=== PATIENT | male | born 1945 | race Caucasian/White ===

== ENCOUNTER 2018-11-09 10:11 | Day surgery (SDC) | payer MEDICARE ==
[2018-11-04 09:38] LABS: BASOPHILS # (AUTO) 0.1 X10'3 (0-0.2); BASOPHILS % (AUTO) 1.4 % (0-1); EOSINOPHILS # (AUTO) 0.5 X10'3 (0-0.9); EOSINOPHILS % (AUTO) 10.3 % (0-6); HEMATOCRIT 30.5 % (42.0-52.0); HEMOGLOBIN 10.2 g/dl (14.0-17.9); LYMPHOCYTES # (AUTO) 0.6 X10'3 (1.1-4.8); LYMPHOCYTES % (AUTO) 11.7 % (21-51); MEAN CORPUSCULAR HEMOGLOBIN 27.3 PG (27.0-31.0); MEAN CORPUSCULAR HGB CONC 33.5 g/dL (33.0-36.5); MEAN CORPUSCULAR VOLUME 81.6 FL (78-98); MEAN PLATELET VOLUME 7.6 FL (7.4-10.4); MONOCYTES # (AUTO) 0.5 X10'3 (0-0.9); NEUTROPHILS # (AUTO) 3.5 X10'3 (1.8-7.7); NEUTROPHILS % (AUTO) 67.6 % (42-75); PLATELET COUNT 194 X10'3 (140-440); RED BLOOD COUNT 3.74 X10'6 (4.70-6.10); RED CELL DISTRIBUTION WIDTH 15.3 % (11.5-14.5); WHITE BLOOD COUNT 5.1 X10'3 (4.5-11.0)
[2018-11-04 09:56] LABS: ALANINE AMINOTRANSFERASE 22 U/L (12-78); ALBUMIN 3.1 G/DL (3.4-5.0); ALBUMIN/GLOBULIN RATIO 0.8 (1.1-1.5); ALKALINE PHOSPHATASE 91 IU/L (46-116); ANION GAP 8 (8-16); ASPARTATE AMINO TRANSFERASE 11 U/L (10-37); BILIRUBIN,TOTAL 0.3 MG/DL (0.1-1.0); BLOOD UREA NITROGEN 44 MG/DL (7-18); BUN/CREATININE RATIO 25.1 (5.4-32.0); CALCIUM 8.1 MG/DL (8.5-10.1); CHLORIDE 102 MMOL/L (99-107); CREATININE 1.75 MG/DL (0.60-1.10); GLUCOSE 129 MG/DL (70-104); POTASSIUM 3.4 MMOL/L (3.5-5.1); SODIUM 138 MMOL/L (135-145); TOTAL CARBON DIOXIDE 28.2 MMOL/L (24-32); eGFR 38 ML/MIN
[2018-11-04 09:59] LABS: PARTIAL THROMBOPLASTIN TIME 29 SECONDS (22-32)
[2018-11-09] VITALS (12 sets, daily range): BP systolic 101–169; BP diastolic 64–91
[~2018-11-09] VITALS: Ht 167.6 cm; Wt 112.9 kg
[2018-11-09] MEDS ORDERED: nitroGLYCERIN 0.4mg SUBLingual tab SL PRN ×2 (10:30→14:40)
[2018-11-09] MEDS ORDERED: dextrose 50%-water 50ml dispensing syringe IV PRN ×2 (10:30)
[2018-11-09] MEDS ORDERED: dextrose ORAL solution 15 GM/59 ML bottle PO PRN ×2 (10:30)
[2018-11-09] MEDS ORDERED: MESSAGE TO PHARMACY PO ONE (10:30)
[2018-11-09] MEDS ORDERED: normal saline 1,000 ML IV SCH (10:30)
[2018-11-09] MEDS ORDERED: diphenhydrAMINE 25mg capsule PO PRN (10:30)
[2018-11-09] MEDS ORDERED: insulin Lispro (HumaLOG) vial - multi-dose SQ SCH (10:30)
[2018-11-09] MEDS ORDERED: glucagon, human recombinant 1mg kit SUBCUT PRN (10:30)
[2018-11-09] MEDS ORDERED: LORazepam 0.5 MG tablet PO PRN (10:30)
[2018-11-09] MEDS ORDERED: AMLO10TA PO (11:20)
[2018-11-09] MEDS ORDERED: NITR0.4T48 SL (11:20)
[2018-11-09] MEDS ORDERED: LANTUS SQ (11:20)
[2018-11-09] MEDS ORDERED: INSULIN NPH SUBCUT (11:20)
[2018-11-09] MEDS ORDERED: TRICOR PO (11:20)
[2018-11-09] MEDS ORDERED: AMIO200T54 PO (11:20)
[2018-11-09] MEDS ORDERED: LISI-600 PO (11:20)
[2018-11-09] MEDS ORDERED: TERA5CAP4 PO (11:20)
[2018-11-09] MEDS ORDERED: HYDR100T27 PO (11:20)
[2018-11-09] MEDS ORDERED: CLON-529 PO (11:20)
[2018-11-09] MEDS ORDERED: ASPI-611 PO (11:20)
[2018-11-09] MEDS ORDERED: PRAV20TA4 PO (11:20)
[2018-11-09] MEDS ORDERED: midazolam 2 mg/2 ml injection ONE (12:51)
[2018-11-09] MEDS ORDERED: iohexol 350 MG/ML 50ML vial IV ONE ×2 (12:51→13:50)
[2018-11-09] MEDS ORDERED: LIDOcaine 1% (10mg/ml)w/preservative injection 20ml MDV ONE (12:51)
[2018-11-09] MEDS ORDERED: fentaNYL/PF 50MCG/1 ML 2ML syringe ONE (12:51)
[2018-11-09] MEDS ORDERED: iohexol 350MG/ML 100ml bottle IV ONE (12:51)
[2018-11-09] MEDS ORDERED: nitroGLYCERIN-Tridil 50MG/D5W 250 ML IV ONE (14:00)
[2018-11-09] MEDS ORDERED: normal saline 1000ml 1,000 ML IV SCH (14:40)
[2018-11-09] MEDS ORDERED: HYDROcodone/acetaminophen 5mg/325mg tablet PO PRN (14:40)
[2018-11-09] MEDS ORDERED: OXAZEpam 15mg capsule PO PRN (14:40)
[2018-11-09] MEDS ORDERED: HYDROcodone/acetaminophen 10/325mg tab PO PRN (14:40)
[2018-11-09] MEDS ORDERED: proCHLORperazine 10 MG/2 ml inj IV PRN (14:40)
[2018-11-09] MEDS ORDERED: ondansetron/PF 4mg/2ml inj IV PRN (14:40)
[2018-11-09] MEDS ORDERED: acetaminophen 325mg tablet PO PRN ×2 (14:40→17:15)
[2018-11-09] MEDS ORDERED: insulin glargine (Lantus) pen - multi-dose SQ SCH (21:00)
== END 2018-11-09 20:05 | disposition home or self-care (01) ==
LOC: SSTAY O 10:11
PROVIDERS: ATTEND Internal Medicine Cardiovascular Disease
DX: T82.898A Other specified complication of vascular prosthetic devices, implants and grafts, initial encounter (principal); I25.10 Atherosclerotic heart disease of native coronary artery without angina pectoris; I25.82 Chronic total occlusion of coronary artery; I10 Essential (primary) hypertension; E78.5 Hyperlipidemia, unspecified; G47.33 Obstructive sleep apnea (adult) (pediatric); I42.9 Cardiomyopathy, unspecified; E11.51 Type 2 diabetes mellitus with diabetic peripheral angiopathy without gangrene; Z87.891 Personal history of nicotine dependence; Z95.1 Presence of aortocoronary bypass graft; Z98.890 Other specified postprocedural states; Y83.8 Other surgical procedures as the cause of abnormal reaction of the patient, or of later complication, without mention of misadventure at the time of the procedure
CPT/HCPCS: 36415; 71046; 80053; 82948; 85025; 85610; 85730; 93005; 93459; 99152; 99153; C1769; J1644; J1815; J2001; J2250; J3010; J7030; Q0163; Q9967; A4620; A6258; C1760; J3490

== ENCOUNTER 2019-01-28 06:41 | Observation (INO) | payer MEDICARE ==
[~2019-01-28] VITALS: Ht 180.3 cm; Wt 107.7 kg
[~2019-01-28 06:41] MED LIST: AMIO200T54 PO; AMLO10TA PO; ASPI-611 PO; CLON-529 PO; HYDR100T27 PO; INSULIN NPH SUBCUT; LANTUS SQ; LISI-600 PO; NITR0.4T48 SL; PRAV20TA4 PO; TERA5CAP4 PO; TRICOR PO
[2019-01-28 07:08] LABS: BASOPHILS % (AUTO) 0.7 % (0-1); EOSINOPHILS # (AUTO) 0.6 X10'3 (0-0.9); EOSINOPHILS % (AUTO) 10.7 % (0-6); HEMATOCRIT 30.5 % (42.0-52.0); HEMOGLOBIN 10.4 g/dl (14.0-17.9); LYMPHOCYTES # (AUTO) 0.7 X10'3 (1.1-4.8); LYMPHOCYTES % (AUTO) 13.2 % (21-51); MEAN CORPUSCULAR HEMOGLOBIN 28.2 PG (27.0-31.0); MEAN CORPUSCULAR HGB CONC 34.1 g/dL (33.0-36.5); MEAN CORPUSCULAR VOLUME 82.7 FL (78-98); MEAN PLATELET VOLUME 7.6 FL (7.4-10.4); MONOCYTES # (AUTO) 0.4 X10'3 (0-0.9); MONOCYTES % (AUTO) 7.7 % (2-12); NEUTROPHILS # (AUTO) 3.5 X10'3 (1.8-7.7); NEUTROPHILS % (AUTO) 67.7 % (42-75); PLATELET COUNT 169 X10'3 (140-440); RED BLOOD COUNT 3.69 X10'6 (4.70-6.10); RED CELL DISTRIBUTION WIDTH 15.6 % (11.5-14.5); WHITE BLOOD COUNT 5.2 X10'3 (4.5-11.0)
[2019-01-28 07:13] LABS: PARTIAL THROMBOPLASTIN TIME 28 SECONDS (22-32)
[2019-01-28 07:22] LABS: ALANINE AMINOTRANSFERASE 17 U/L (12-78); ALBUMIN 2.8 G/DL (3.4-5.0); ALBUMIN/GLOBULIN RATIO 0.7 (1.1-1.5); ALKALINE PHOSPHATASE 82 IU/L (46-116); ANION GAP 10 (8-16); ASPARTATE AMINO TRANSFERASE 11 U/L (10-37); BILIRUBIN,TOTAL 0.2 MG/DL (0.1-1.0); BLOOD UREA NITROGEN 37 MG/DL (7-18); BUN/CREATININE RATIO 20.4 (5.4-32.0); CALCIUM 8.2 MG/DL (8.5-10.1); CHLORIDE 101 MMOL/L (99-107); CREATININE 1.81 MG/DL (0.60-1.10); GLUCOSE 349 MG/DL (70-104); POTASSIUM 3.6 MMOL/L (3.5-5.1); SODIUM 137 MMOL/L (135-145); TOTAL CARBON DIOXIDE 25.9 MMOL/L (24-32); TOTAL PROTEIN 6.9 G/DL (6.4-8.2); eGFR 37 ML/MIN
--- NOTE | 2019-01-28 07:34 | NUR ---
notified of blood glucose of 332.
[2019-01-28] MEDS ORDERED: nitroGLYCERIN 0.4mg/hour patch TD ONE (07:50)
[2019-01-28] MEDS ORDERED: dextrose ORAL solution 15 GM/59 ML bottle PO PRN ×2 (08:45)
[2019-01-28] MEDS ORDERED: magnesium Cl slow-release 64mg tablet PO PRN (08:45)
[2019-01-28] MEDS ORDERED: magnesium 4gm in 100ml NS 100 ML IV PRN (08:45)
[2019-01-28] MEDS ORDERED: magnesium 2GM in 50ml NS 50 ML IV PRN (08:45)
[2019-01-28] MEDS ORDERED: HYDROcodone/acetaminophen 10/325mg tab PO PRN (08:45)
[2019-01-28] MEDS ORDERED: dextrose 50%-water 50ml dispensing syringe IV PRN ×2 (08:45)
[2019-01-28] MEDS ORDERED: potassium CL 10mEq/100ml bag 100 ML IV PRN ×2 (08:45)
[2019-01-28] MEDS ORDERED: potassium Cl 20 mEq SR tablet PO PRN ×2 (08:45)
[2019-01-28] MEDS ORDERED: glucagon, human recombinant 1mg kit SUBCUT PRN (08:45)
[2019-01-28] MEDS ORDERED: mag hydrox/Alum hydrox/simeth 30ml oral suspension PO PRN (08:45)
[2019-01-28] MEDS ORDERED: magnesium hydroxide 30ml (MOM) UD suspension PO PRN (08:45)
[2019-01-28] MEDS ORDERED: acetaminophen 325mg tablet PO PRN ×2 (08:45)
[2019-01-28] MEDS ORDERED: ondansetron/PF 4mg/2ml inj IV PRN (08:45)
[2019-01-28] MEDS ORDERED: MESSAGE TO PHARMACY PO ONE (08:45)
[2019-01-28] MEDS ORDERED: morphine 2 MG/ML inj. syringe IV PRN ×2 (08:45)
[2019-01-28] MEDS: K and/or MAG REPLACEMENT MC SCH (08:45)
[2019-01-28] MEDS ORDERED: HYDROcodone/acetaminophen 5mg/325mg tablet PO PRN (08:45)
[2019-01-28] MEDS: normal saline 1000ml 1,000 ML IV SCH ×2 (09:47→23:33)
[2019-01-28 09:49] LABS: CLARITY,URINE CLEAR (Clear); COLOR,URINE YELLOW (Yellow); GLUCOSE, URINE >=1000 mg/dl (Neg); KETONES,URINE NEGATIVE (Neg); LEUKOCYTE ESTERASE ,URINE NEGATIVE (Neg); NITRITES, URINE NEGATIVE (Neg); OCCULT BLOOD,URINE NEGATIVE (Neg); PROTEIN,URINE 100 mg/dl (Neg); UROBILINOGEN,URINE 0.2 E.U/dL (0.2-1.0)
--- NOTE | 2019-01-28 10:00 | NUR ---
Pt arrived to unit from ED. Pt oriented to room and call light. Pt alert and oriented. Vitals WNL besides BP of 188/87
[2019-01-28 10:09] LABS: UA COLLECTION TYPE URINAL
[2019-01-28 10:10] LABS: WBC,URINE 0-4 /HPF (0-4)
[2019-01-28 10:11] LABS: BACTERIA,URINE NONE SEEN /HPF (Neg); RBC,URINE 0-2 /HPF (0-2); SQUAMOUS EPITHELIAL CELL,UR FEW /LPF (FEW)
--- NOTE | 2019-01-28 10:16 | NUR ---
PAGER ID: [phone] MESSAGE: RE: Genaro Linuilar. Room: [facility]. Pt BP 188/87. Pt has scheduled hydralazine 100mg q 8hrs but first dose isn't until 1600. Can I order one time dose for now? -Evan U #[id number] Dr. Pineda paged concerning Pt's BP
[2019-01-28 10:17] LABS: HEMOGLOBIN A1C 9.8 % (4.5-6.2)
[2019-01-28] MEDS ORDERED: hydrALAZINE 25 MG tablet PO ONE (10:45)
[2019-01-28] MEDS: insulin Lispro (HumaLOG) vial - multi-dose SQ SCH ×3 (10:59→19:24)
[2019-01-28 11:00] VITALS: BP 178/87
[2019-01-28 15:00] VITALS: BP 169/71
[2019-01-28] MEDS: hydrALAZINE 25 MG tablet PO SCH ×2 (16:02→23:33)
[2019-01-28 18:00] VITALS: BP 169/72
--- NOTE | 2019-01-28 18:00 | NUR ---
Problems reprioritized. Patient report given, questions answered & plan of care reviewed with Elizabeth RAMIRES.
[2019-01-28] MEDS: heparin, porcine 5000 units/ml vial SQ SCH (19:13)
[2019-01-28] MEDS: cloNIDine 0.1 mg tablet PO SCH (19:18)
[2019-01-28] MEDS ORDERED: terazosin 5mg capsule PO SCH (21:00)
[2019-01-28] MEDS ORDERED: temazepam 15mg capsule PO PRN (21:00)
[2019-01-28] MEDS ORDERED: insulin glargine (Lantus) pen - multi-dose SQ SCH (21:00)
[2019-01-28 22:00] VITALS: BP 143/69
[2019-01-28] MEDS: metoprolol succinate 25mg (24-HOUR) SR. Tablet PO SCH (23:33)
[2019-01-29 03:00] VITALS: BP 169/76
[2019-01-29] MEDS: cloNIDine 0.1 mg tablet PO SCH (03:49)
--- NOTE | 2019-01-29 03:51 | NUR ---
Blood pressure elevated. MD ordered to give clonidine, scheduled at 0800, to be given early.
[2019-01-29] MEDS: normal saline 1000ml 1,000 ML IV SCH (04:44)
[2019-01-29 06:00] VITALS: BP 161/78
--- NOTE | 2019-01-29 06:13 | NUR ---
Problems reprioritized. Patient report given, questions answered & plan of care reviewed with KEYLA Rich.
--- NOTE | 2019-01-29 06:29 | NUR ---
Patient in room PCU 3012C. I have received report from Elizabeth RAMIRES and had the opportunity to ask questions and assume patient care.
[2019-01-29 06:36] LABS: BASOPHILS # (AUTO) 0.1 X10'3 (0-0.2); EOSINOPHILS # (AUTO) 0.5 X10'3 (0-0.9); EOSINOPHILS % (AUTO) 8.7 % (0-6); HEMATOCRIT 27.5 % (42.0-52.0); HEMOGLOBIN 9.3 g/dl (14.0-17.9); LYMPHOCYTES # (AUTO) 0.6 X10'3 (1.1-4.8); LYMPHOCYTES % (AUTO) 9.7 % (21-51); MEAN CORPUSCULAR HEMOGLOBIN 28.2 PG (27.0-31.0); MEAN PLATELET VOLUME 7.8 FL (7.4-10.4); MONOCYTES # (AUTO) 0.4 X10'3 (0-0.9); MONOCYTES % (AUTO) 7.4 % (2-12); NEUTROPHILS # (AUTO) 4.4 X10'3 (1.8-7.7); NEUTROPHILS % (AUTO) 73.2 % (42-75); PLATELET COUNT 169 X10'3 (140-440); RED BLOOD COUNT 3.31 X10'6 (4.70-6.10); RED CELL DISTRIBUTION WIDTH 15.7 % (11.5-14.5)
[2019-01-29 06:52] LABS: ALANINE AMINOTRANSFERASE 15 U/L (12-78); ALBUMIN 2.5 G/DL (3.4-5.0); ALBUMIN/GLOBULIN RATIO 0.7 (1.1-1.5); ALKALINE PHOSPHATASE 70 IU/L (46-116); ANION GAP 8 (8-16); ASPARTATE AMINO TRANSFERASE 9 U/L (10-37); BILIRUBIN,TOTAL 0.2 MG/DL (0.1-1.0); BLOOD UREA NITROGEN 34 MG/DL (7-18); BUN/CREATININE RATIO 22.4 (5.4-32.0); CALCIUM 7.5 MG/DL (8.5-10.1); CHLORIDE 108 MMOL/L (99-107); CHOL/HDL RATIO 2.5 (0.00-4.99); CHOLESTEROL 130 MG/DL (0-200); CREATININE 1.52 MG/DL (0.60-1.10); GLUCOSE 147 MG/DL (70-104); HDL CHOLESTEROL 53 MG/DL (35-60); LDL CHOLESTEROL 63 MG/DL (50-100); MAGNESIUM 1.7 MG/DL (1.5-2.4); PHOSPHORUS 3.9 MG/DL (2.3-4.5); POTASSIUM 3.2 MMOL/L (3.5-5.1); SODIUM 142 MMOL/L (135-145); TOTAL PROTEIN 5.9 G/DL (6.4-8.2); TRIGLYCERIDES 128 MG/DL (20-135); eGFR 45 ML/MIN
[2019-01-29] MEDS: hydrALAZINE 25 MG tablet PO SCH (07:46)
[2019-01-29] MEDS: metoprolol succinate 25mg (24-HOUR) SR. Tablet PO SCH ×2 (07:48→08:00)
[2019-01-29] MEDS: heparin, porcine 5000 units/ml vial SQ SCH (07:53)
[2019-01-29] MEDS ORDERED: lisinopril 20mg tablet PO SCH (08:00)
[2019-01-29] MEDS ORDERED: aspirin 81mg tablet.DR PO SCH (08:00)
[2019-01-29] MEDS ORDERED: atorvastatin 10mg tablet PO SCH (08:00)
[2019-01-29] MEDS ORDERED: fenofibrate 145mg tablet PO SCH (08:00)
[2019-01-29] MEDS ORDERED: amLODIPine 5mg tablet PO SCH (08:00)
[2019-01-29] MEDS ORDERED: isosorbide mononitrate 30mg tab.SR.24H PO SCH (08:00)
[2019-01-29] MEDS: K and/or MAG REPLACEMENT MC SCH (08:00)
[2019-01-29] MEDS ORDERED: amiodarone 200mg tablet PO SCH (08:00)
[2019-01-29] MEDS ORDERED: atorvastatin 20mg tablet PO SCH (08:00)
--- NOTE | 2019-01-29 08:00 | NUR ---
I agree with Physical Assessment documentation of Carley Foster RN.
[2019-01-29] MEDS: insulin Lispro (HumaLOG) vial - multi-dose SQ SCH ×2 (09:07→13:09)
[2019-01-29] MEDS ORDERED: pneumococcal 23-VAL P-sac vacc 25 mcg/0.5ml vial IMVAC ONE (10:00)
[2019-01-29] MEDS ORDERED: FLU VACC QS2019-20 36MOS UP/PF 60 MCG/0.5 ML SYRINGE IMVAC ONE (10:00)
[2019-01-29 11:00] VITALS: BP 149/64
[2019-01-29] MEDS ORDERED: ISOS30TA6 PO (11:34)
[2019-01-29] MEDS ORDERED: METO-395 PO (11:34)
[2019-01-29] MEDS ORDERED: ATOR20TA66 PO (11:34)
--- NOTE | 2019-01-29 11:59 | NUR ---
Paged Dr Pineda regarding discharge medications PAGER ID: [phone] MESSAGE: Layla sanofrd [phone]. RE Clem Espinoza [id number]. Please call regarding pt/s D/C medications. Receiving pharmacy has a question regarding new orders. Thank you
--- NOTE | 2019-01-29 12:44 | NUR ---
Pt has new medication orders for Atorvastatin 80 mg PO daily, in 20 mg tabs. [facility] in [place] let us know that patient's insurance will only cover one tab. Paged Dr Pineda, and he said it was okay to have the pharmacy give the patient one 80 mg tab daily instead of four 20 mg tabs. Order verified with MD and to pharmacy.
--- NOTE | 2019-01-29 13:23 | NUR ---
Spoke with the patient at his bedside and patient states his Diabetic MD is Dr. Galindo. He states his next appointment with her is on 02/15/19 at 0900. Patient encouraged to follow up as directed. Primary RN has been informed.
--- NOTE | 2019-01-29 13:32 | NUR ---
Per MD order patient stable for discharge. Discharge packet reviewed with patient, prescriptions faxed to pharmacy of choice. Tele monitor and IV removed with cannula intact. Patient stable for discharge home with friend/neighbor, taken to private vehicle via wheelchair. All belongings sent with patient.
--- NOTE | 2019-01-29 14:52 | NUR ---
DM Consult: A1C 9.8. Pt seen by RD for written/verbal DM ed w/ RD contact information and CDE course information provided. Pt verbally explained proper carb portions and even percentage of sugar on nutrition facts label that he watches for. Pt admits to decreased dietary compliance following passing recently. Pt takes long acting TID; splits dose at B/L/D since doesn't like taking HS as prescribed and takes short acting prior to meals without dose adjusting based on diet. RD encouraged to attend CDE course and d/w PCP regarding meal replacement dosages in addition to increasing dietary compliance. Addendum: 01/29/19 at [address] Amended: Links added.
--- NOTE | 2019-01-29 15:00 | NUR ---
[employer] documentation: I have reviewed and agree with all interventions, assessments performed and documented by Carley RAMIRES.
[2019-01-30] MEDS ORDERED: FLU VACC QS2019-20 36MOS UP/PF 60 MCG/0.5 ML SYRINGE IMVAC ONE (10:00)
== END 2019-01-29 13:27 | disposition home or self-care (01) ==
LOC: ER 06:41 → ED HOLD 08:54 → PCU 3S 10:10
PROVIDERS: ADMIT Family Medicine; ATTEND Family Medicine
DX: I25.110 Atherosclerotic heart disease of native coronary artery with unstable angina pectoris (principal); I13.0 Hypertensive heart and chronic kidney disease with heart failure and stage 1 through stage 4 chronic kidney disease, or unspecified chronic kidney disease; E11.22 Type 2 diabetes mellitus with diabetic chronic kidney disease; I50.9 Heart failure, unspecified; N18.9 Chronic kidney disease, unspecified; I48.91 Unspecified atrial fibrillation; E11.65 Type 2 diabetes mellitus with hyperglycemia; E66.9 Obesity, unspecified; E78.5 Hyperlipidemia, unspecified; I89.0 Lymphedema, not elsewhere classified; J43.9 Emphysema, unspecified; Z66 Do not resuscitate; Z23 Encounter for immunization; Z95.1 Presence of aortocoronary bypass graft; Z90.49 Acquired absence of other specified parts of digestive tract; Z79.82 Long term (current) use of aspirin; Z79.4 Long term (current) use of insulin; Z79.899 Other long term (current) drug therapy; Z68.33 Body mass index [BMI] 33.0-33.9, adult
CPT/HCPCS: 36415; 71045; 80053; 80061; 81001; 82948; 83036; 83735; 84100; 84439; 84443; 84484; 85025; 85610; 85730; 87081; 93005; 93306; 96360; 96361; 96372; 99284; G0008; G0009; G0378; J1644; J1815; J7030; Q2037

== ENCOUNTER 2019-06-05 11:43 | Inpatient (IN) | payer MEDICARE ==
[~2019-06-05] VITALS: Ht 172.7 cm; Wt 114.4 kg
[~2019-06-05 11:43] MED LIST changes: -AMIO200T54 PO; +AMIO200T62 PO; +ATOR20TA66 PO; +ISOS30TA6 PO; +METO-395 PO; -PRAV20TA4 PO
[2019-06-05 12:11] LABS: BASOPHILS # (AUTO) 0.1 X10'3 (0-0.2); BASOPHILS % (AUTO) 1.3 % (0-1); EOSINOPHILS # (AUTO) 0.4 X10'3 (0-0.9); EOSINOPHILS % (AUTO) 7.1 % (0-6); HEMATOCRIT 31.2 % (42.0-52.0); HEMOGLOBIN 10.2 g/dl (14.0-17.9); LYMPHOCYTES # (AUTO) 0.5 X10'3 (1.1-4.8); LYMPHOCYTES % (AUTO) 8.3 % (21-51); MEAN CORPUSCULAR HEMOGLOBIN 26.6 PG (27.0-31.0); MEAN CORPUSCULAR HGB CONC 32.7 g/dL (33.0-36.5); MEAN CORPUSCULAR VOLUME 81.3 FL (78-98); MEAN PLATELET VOLUME 7.6 FL (7.4-10.4); MONOCYTES # (AUTO) 0.3 X10'3 (0-0.9); MONOCYTES % (AUTO) 5.8 % (2-12); NEUTROPHILS # (AUTO) 4.4 X10'3 (1.8-7.7); NEUTROPHILS % (AUTO) 77.5 % (42-75); PLATELET COUNT 198 X10'3 (140-440); RED BLOOD COUNT 3.84 X10'6 (4.70-6.10); RED CELL DISTRIBUTION WIDTH 15.6 % (11.5-14.5); WHITE BLOOD COUNT 5.7 X10'3 (4.5-11.0)
[2019-06-05] MEDS ORDERED: aspirin 81mg tab.chew PO ONE (12:25)
[2019-06-05] MEDS ORDERED: furosemide 10 MG/1 ML 10ml inj IV ONE (12:25)
[2019-06-05 12:28] LABS: ALANINE AMINOTRANSFERASE 12 U/L (12-78); ALBUMIN 3.1 G/DL (3.4-5.0); ANION GAP 10 (8-16); ASPARTATE AMINO TRANSFERASE 14 U/L (10-37); BLOOD UREA NITROGEN 33 MG/DL (7-18); BUN/CREATININE RATIO 16.4 (5.4-32.0); CALCIUM 8.4 MG/DL (8.5-10.1); CHLORIDE 104 MMOL/L (99-107); CREATININE 2.01 MG/DL (0.60-1.10); GLUCOSE 137 MG/DL (70-104); POTASSIUM 3.6 MMOL/L (3.5-5.1); SODIUM 141 MMOL/L (135-145); TOTAL CARBON DIOXIDE 27.5 MMOL/L (24-32); eGFR 33 ML/MIN
[2019-06-05] MEDS ORDERED: nitroGLYCERIN 0.4mg SUBLingual tab SL PRN (12:30)
[2019-06-05] MEDS ORDERED: proparacaine 0.5% ophthalmic drops 15ml ONE (12:33)
[2019-06-05] MEDS ORDERED: LISI30TA4 PO (12:40)
[2019-06-05] MEDS ORDERED: FURO-149 PO (12:42)
[2019-06-05] MEDS ORDERED: LOSA50TA64 PO (12:46)
[2019-06-05] MEDS ORDERED: ATOR-2 PO (12:46)
[2019-06-05 12:54] LABS: ALBUMIN/GLOBULIN RATIO 0.7 (1.1-1.5); ALKALINE PHOSPHATASE 108 IU/L (46-116); BILIRUBIN,TOTAL 0.3 MG/DL (0.1-1.0); TOTAL PROTEIN 7.3 G/DL (6.4-8.2)
[2019-06-05] MEDS ORDERED: CLON1PAT16 TOP (12:57)
[2019-06-05] MEDS ORDERED: INSU100I8 SQ (12:57)
[2019-06-05] MEDS ORDERED: LISI40TA4 PO (13:04)
[2019-06-05] MEDS ORDERED: INSU100I25 SQ (13:07)
[2019-06-05] MEDS ORDERED: CefTRIAXone 2gm/D5W 50ml 50 ML IV ONE (13:35)
[2019-06-05] MEDS ORDERED: acetaminophen 325mg tablet PO PRN (13:55)
[2019-06-05] MEDS ORDERED: HYDROcodone/acetaminophen 10/325mg tab PO PRN (13:55)
[2019-06-05] MEDS ORDERED: morphine 2 MG/ML inj. syringe IV PRN ×2 (13:55)
[2019-06-05] MEDS ORDERED: mag hydrox/Alum hydrox/simeth 30ml oral suspension PO PRN (13:55)
[2019-06-05] MEDS ORDERED: magnesium hydroxide 30ml (MOM) UD suspension PO PRN (13:55)
[2019-06-05] MEDS ORDERED: ondansetron/PF 4mg/2ml inj IV PRN (13:55)
--- NOTE | 2019-06-05 13:56 | NUR ---
Geovany tucker in ED - 06/05/19 at 1356 by JACINDA pt. in MRI
--- NOTE | 2019-06-05 15:01 | NUR ---
Received report from Heriberto RAMIRES in the ER. Only IV access is a field start. Heriberto RAMIRES stated he would not start new PIV before patient comes to the floor. Will attempt to start new IV due to ER when patient arrives to the floor.
--- NOTE | 2019-06-05 15:25 | NUR ---
Patient arrived to the unit accompanied by ED personnel. Safely transferred to hospital bed, belongings placed at the bedside, 2 RN skin check complete, and patient oriented to room and call light.
[2019-06-05 15:54] VITALS: BP 177/88
[2019-06-05] MEDS: hydrALAZINE 25 MG tablet PO SCH ×2 (17:30→23:09)
[2019-06-05] MEDS: HYDROcodone/acetaminophen 5mg/325mg tablet PO PRN (17:47)
[2019-06-05 18:00] VITALS: BP 146/78
--- NOTE | 2019-06-05 18:12 | NUR ---
Problems reprioritized. Patient report given, questions answered & plan of care reviewed with Sandra RAMIRES and Radha RAMIRES.
--- NOTE | 2019-06-05 19:08 | NUR ---
Patient in room PCU 3018. I have received report from KEYLA Villalobos and had the opportunity to ask questions and assume patient care.
[2019-06-05] MEDS ORDERED: MESSAGE TO PHARMACY PO ONE (19:10)
[2019-06-05] MEDS ORDERED: glucagon, human recombinant 1mg kit SUBCUT PRN (19:10)
[2019-06-05] MEDS ORDERED: dextrose ORAL solution 15 GM/59 ML bottle PO PRN ×2 (19:10)
[2019-06-05] MEDS ORDERED: dextrose 50%-water 50ml dispensing syringe IV PRN ×2 (19:10)
[2019-06-05 19:12] VITALS: BP 146/78
[2019-06-05] MEDS: terazosin 5mg capsule PO SCH (19:54)
[2019-06-05] MEDS: lisinopril 20mg tablet PO SCH (19:55)
--- NOTE | 2019-06-05 20:03 | NUR ---
Patient had a few runs of V TACH. Izzy is aware and we have ordered a K and MG level. 12 lead EKG completed and reviewed by Dr. Magana with no significant findings. Will continue to monitor.
[2019-06-05] MEDS: atorvastatin 20mg tablet PO SCH (20:07)
[2019-06-05 20:10] LABS: HEMOGLOBIN A1C 9.2 % (4.5-6.2)
[2019-06-05 20:39] LABS: MAGNESIUM 1.8 MG/DL (1.5-2.4); POTASSIUM 3.7 MMOL/L (3.5-5.1)
[2019-06-05] MEDS: insulin glargine (Lantus) pen - multi-dose SQ SCH (21:00)
[2019-06-05 22:42] VITALS: BP 146/78
[2019-06-06 02:00] VITALS: BP 179/79
[2019-06-06] MEDS ORDERED: amLODIPine 2.5mg tablet PO ONE (02:30)
--- NOTE | 2019-06-06 02:41 | NUR ---
Received order for Norvasc 2.5 mg one time dose for patient BP of 179/79. Kittrick aware if troponin increase.
[2019-06-06] MEDS: HYDROcodone/acetaminophen 5mg/325mg tablet PO PRN ×3 (03:22→20:26)
[2019-06-06] MEDS ORDERED: potassium CL 10mEq/100ml bag 100 ML IV PRN (03:50)
[2019-06-06] MEDS ORDERED: potassium Cl 20 mEq SR tablet PO PRN (03:50)
--- NOTE | 2019-06-06 04:38 | NUR ---
Pt's BP still high 178/73, 89 bpm after 1.5 hrs of one time dose of Amlodipine. Pt is asymptomatic. Dr. Magana is notified and no new order given.
--- NOTE | 2019-06-06 05:12 | NUR ---
I agree with all charting completed by KEYLA Montoya.
[2019-06-06 05:18] LABS: BASOPHILS # (AUTO) 0.1 X10'3 (0-0.2); BASOPHILS % (AUTO) 0.9 % (0-1); EOSINOPHILS # (AUTO) 0.1 X10'3 (0-0.9); EOSINOPHILS % (AUTO) 0.8 % (0-6); HEMATOCRIT 27.4 % (42.0-52.0); HEMOGLOBIN 9.1 g/dl (14.0-17.9); LYMPHOCYTES # (AUTO) 0.2 X10'3 (1.1-4.8); LYMPHOCYTES % (AUTO) 2.5 % (21-51); MEAN CORPUSCULAR HGB CONC 33.3 g/dL (33.0-36.5); MEAN CORPUSCULAR VOLUME 81.2 FL (78-98); MONOCYTES # (AUTO) 0.5 X10'3 (0-0.9); MONOCYTES % (AUTO) 7.5 % (2-12); NEUTROPHILS # (AUTO) 5.5 X10'3 (1.8-7.7); NEUTROPHILS % (AUTO) 88.3 % (42-75); PLATELET COUNT 159 X10'3 (140-440); RED BLOOD COUNT 3.38 X10'6 (4.70-6.10); RED CELL DISTRIBUTION WIDTH 15.3 % (11.5-14.5); WHITE BLOOD COUNT 6.2 X10'3 (4.5-11.0)
[2019-06-06 05:38] LABS: ALBUMIN 2.8 G/DL (3.4-5.0); ANION GAP 9 (8-16); BLOOD UREA NITROGEN 30 MG/DL (7-18); BUN/CREATININE RATIO 14.6 (5.4-32.0); CALCIUM 8.4 MG/DL (8.5-10.1); CHLORIDE 104 MMOL/L (99-107); CREATININE 2.05 MG/DL (0.60-1.10); GLUCOSE 222 MG/DL (70-104); POTASSIUM 3.5 MMOL/L (3.5-5.1); SODIUM 141 MMOL/L (135-145); TOTAL CARBON DIOXIDE 28.5 MMOL/L (24-32); eGFR 32 ML/MIN
[2019-06-06 06:00] VITALS: BP 167/79
--- NOTE | 2019-06-06 06:14 | NUR ---
Problems reprioritized. Patient report given, questions answered & plan of care reviewed with KEYLA Manzanares.
--- NOTE | 2019-06-06 06:30 | NUR ---
Patient in room PCU 3018. I have received report from heather parker and had the opportunity to ask questions and assume patient care.
[2019-06-06] MEDS: K and/or MAG REPLACEMENT MC SCH ×2 (08:00→20:00)
[2019-06-06] MEDS: hydrALAZINE 25 MG tablet PO SCH ×3 (08:08→23:45)
[2019-06-06] MEDS: amiodarone 200mg tablet PO SCH (08:09)
[2019-06-06] MEDS: aspirin 81mg tablet.DR PO SCH (08:09)
[2019-06-06] MEDS: terazosin 5mg capsule PO SCH ×2 (08:10→20:13)
[2019-06-06] MEDS: atorvastatin 20mg tablet PO SCH (08:10)
[2019-06-06] MEDS: lisinopril 20mg tablet PO SCH ×2 (08:12→20:16)
[2019-06-06] MEDS: insulin Lispro (HumaLOG) vial - multi-dose SQ SCH ×3 (08:21→20:23)
--- NOTE | 2019-06-06 09:18 | NUR ---
PAGER ID: [phone] MESSAGE: DR. CAST, 3018B/LAURA, ON . NEED OXYGEN ORDER PLEASE. BÁRBARA WILLS [phone].
[2019-06-06 11:00] VITALS: BP 135/66
--- NOTE | 2019-06-06 12:23 | NUR ---
Pt with A1c 9.2 down from 9.8 in January of last year seen at bedside. Pt states he was supposed to have an appointment with his MD today however will be rescheduling d/t being admitted. Pt states he checks his BG levels three or more times a day after each meal and reports taking his insulin not per rx as he takes it TID. Pt states his MD doesn't like that he does this so he doesn't always tell her. RD encouraged pt to be honest with his MD about how he takes his insulin in order to best determine rx. Pt verbalized understanding. Pt reports he has better managed his diabetes through diet by monitoring and decreasing PO intake. Pt states one obstacle is that his had diabetes and would choose foods for him to eat however his recently . All of patient's questions were answered at this time. Pt provided with written and verbal DM education with referral to outpatient DM class and RD contact information. Pt endorses a good appetite which is evident with 100% PO intake at breakfast this morning on heart healthy CHO controlled diet. Pt denies additional protein/food preferences at this time, food allergies, difficulty chewing/swallowing, or constipation/diarrhea. LBM documented as 06/02. Pt received PRN MoM 06/05 and pt states he had a large BM this morning. Will continue to follow. Addendum: 06/06/19 at [address] Amended: Links added.
[2019-06-06 15:00] VITALS: BP 117/66
[2019-06-06 18:00] VITALS: BP 174/82
--- NOTE | 2019-06-06 18:13 | NUR ---
Problems reprioritized. Patient report given, questions answered & plan of care reviewed with KEYLA BURGESS.
--- NOTE | 2019-06-06 18:25 | NUR ---
Patient in room PCU 3018. I have received report from KEYLA Manzanares and had the opportunity to ask questions and assume patient care.
--- NOTE | 2019-06-06 21:00 | NUR ---
Pt was not treated for nutritional Humalog until 2099 because pt refused to eat, but ended up eating 29 grams of Carb at 2099.
[2019-06-06 22:00] VITALS: BP 165/77
[2019-06-06] MEDS: insulin glargine (Lantus) pen - multi-dose SQ SCH (22:08)
[2019-06-07] VITALS (7 sets, daily range): BP systolic 101–181; BP diastolic 65–78
--- NOTE | 2019-06-07 02:49 | NUR ---
Paged Dr. Castro. PAGER ID: [phone] MESSAGE: [id number] Alexis R: Pt's BP is 179/89; he is asymptomatic. Please advice... Radha/Sandra x [phone]
[2019-06-07] MEDS ORDERED: hydrALAZINE 20mg/ml inj. IV ONE (03:00)
--- NOTE | 2019-06-07 05:14 | NUR ---
[place] documentation: I have reviewed and agree with all interventions, assessments performed and documented by KEYLA Montoya.
[2019-06-07 05:30] LABS: BASOPHILS % (AUTO) 0.9 % (0-1); EOSINOPHILS # (AUTO) 0.3 X10'3 (0-0.9); EOSINOPHILS % (AUTO) 6.6 % (0-6); HEMATOCRIT 25.5 % (42.0-52.0); HEMOGLOBIN 8.6 g/dl (14.0-17.9); LYMPHOCYTES # (AUTO) 0.4 X10'3 (1.1-4.8); LYMPHOCYTES % (AUTO) 9.2 % (21-51); MEAN CORPUSCULAR HEMOGLOBIN 27.3 PG (27.0-31.0); MEAN CORPUSCULAR HGB CONC 33.6 g/dL (33.0-36.5); MEAN CORPUSCULAR VOLUME 81.2 FL (78-98); MEAN PLATELET VOLUME 7.8 FL (7.4-10.4); MONOCYTES # (AUTO) 0.4 X10'3 (0-0.9); MONOCYTES % (AUTO) 9.9 % (2-12); NEUTROPHILS % (AUTO) 73.4 % (42-75); PLATELET COUNT 144 X10'3 (140-440); RED BLOOD COUNT 3.14 X10'6 (4.70-6.10); RED CELL DISTRIBUTION WIDTH 15.3 % (11.5-14.5); WHITE BLOOD COUNT 4.1 X10'3 (4.5-11.0)
[2019-06-07 05:32] LABS: ALBUMIN 2.5 G/DL (3.4-5.0); ANION GAP 7 (8-16); BLOOD UREA NITROGEN 33 MG/DL (7-18); BUN/CREATININE RATIO 15.9 (5.4-32.0); CHLORIDE 103 MMOL/L (99-107); CREATININE 2.07 MG/DL (0.60-1.10); GLUCOSE 147 MG/DL (70-104); POTASSIUM 3.3 MMOL/L (3.5-5.1); SODIUM 139 MMOL/L (135-145); TOTAL CARBON DIOXIDE 28.6 MMOL/L (24-32); eGFR 31 ML/MIN
--- NOTE | 2019-06-07 06:20 | NUR ---
Patient in room U 3018B. I have received report from Kenzie RAMIRES and Sandra RN and had the opportunity to ask questions and assume patient care. Patient sitting up in bed, no signs of distress at this time, will continue to monitor.
--- NOTE | 2019-06-07 06:25 | NUR ---
Problems reprioritized. Patient report given, questions answered & plan of care reviewed with KEYLA Howe.
--- NOTE | 2019-06-07 06:26 | NUR ---
Pt is stable on shift change. Problems reprioritized. Patient report given, questions answered & plan of care reviewed with KEYLA Mahan & Fransisco RN.
[2019-06-07] MEDS: K and/or MAG REPLACEMENT MC SCH ×2 (08:00→20:00)
[2019-06-07] MEDS: terazosin 5mg capsule PO SCH ×2 (08:08→19:36)
[2019-06-07] MEDS: amiodarone 200mg tablet PO SCH (08:08)
[2019-06-07] MEDS: potassium Cl 20 mEq SR tablet PO PRN ×3 (08:08→19:37)
[2019-06-07] MEDS: aspirin 81mg tablet.DR PO SCH (08:08)
[2019-06-07] MEDS: hydrALAZINE 25 MG tablet PO SCH ×3 (08:10→23:48)
[2019-06-07] MEDS: atorvastatin 20mg tablet PO SCH (08:10)
[2019-06-07] MEDS: lisinopril 20mg tablet PO SCH ×2 (08:10→19:37)
[2019-06-07] MEDS: insulin Lispro (HumaLOG) vial - multi-dose SQ SCH ×3 (08:43→19:34)
--- NOTE | 2019-06-07 18:23 | NUR ---
Problems reprioritized. Patient report given, questions answered & plan of care reviewed with Elida RAMIRES. Patient sitting up in bed, eating dinner, no complaints at this time.
--- NOTE | 2019-06-07 18:30 | NUR ---
Patient in room PCU 3018. I have received report from KEYLA Howe and had the opportunity to ask questions and assume patient care.
[2019-06-07] MEDS: mineral oil/petrolatum, white cream 113gm jar TP SCH (19:38)
--- NOTE | 2019-06-07 20:18 | NUR ---
MD call and notifed about patient going into AFIB. Patient has a history of paroxysmal AFIB and takes amiodarone. He's asymptomatic at this time. No new orders were given. I will pass it on to the next nurse during handoff report.
[2019-06-07] MEDS: insulin glargine (Lantus) pen - multi-dose SQ SCH (21:48)
[2019-06-08 02:00] VITALS: BP 155/87
--- NOTE | 2019-06-08 04:00 | NUR ---
Patient converted back to SR from AFIB at 0351.
[2019-06-08 06:00] VITALS: BP 175/89
--- NOTE | 2019-06-08 06:01 | NUR ---
Problems reprioritized. Patient report given, questions answered & plan of care reviewed with KEYLA Howe.
[2019-06-08 06:13] LABS: EOSINOPHILS # (AUTO) 0.4 X10'3 (0-0.9); EOSINOPHILS % (AUTO) 10.7 % (0-6); HEMATOCRIT 27.7 % (42.0-52.0); HEMOGLOBIN 9.2 g/dl (14.0-17.9); LYMPHOCYTES # (AUTO) 0.5 X10'3 (1.1-4.8); LYMPHOCYTES % (AUTO) 12.6 % (21-51); MEAN CORPUSCULAR HEMOGLOBIN 26.9 PG (27.0-31.0); MEAN CORPUSCULAR HGB CONC 33.3 g/dL (33.0-36.5); MEAN CORPUSCULAR VOLUME 80.8 FL (78-98); MEAN PLATELET VOLUME 7.9 FL (7.4-10.4); MONOCYTES # (AUTO) 0.4 X10'3 (0-0.9); MONOCYTES % (AUTO) 11.8 % (2-12); NEUTROPHILS # (AUTO) 2.4 X10'3 (1.8-7.7); NEUTROPHILS % (AUTO) 63.9 % (42-75); PLATELET COUNT 161 X10'3 (140-440); RED BLOOD COUNT 3.43 X10'6 (4.70-6.10); RED CELL DISTRIBUTION WIDTH 15.2 % (11.5-14.5); WHITE BLOOD COUNT 3.7 X10'3 (4.5-11.0)
[2019-06-08 06:27] LABS: ALBUMIN 2.5 G/DL (3.4-5.0); ANION GAP 7 (8-16); BLOOD UREA NITROGEN 37 MG/DL (7-18); BUN/CREATININE RATIO 18.6 (5.4-32.0); CALCIUM 8.1 MG/DL (8.5-10.1); CHLORIDE 103 MMOL/L (99-107); CREATININE 1.99 MG/DL (0.60-1.10); GLUCOSE 140 MG/DL (70-104); POTASSIUM 3.6 MMOL/L (3.5-5.1); SODIUM 140 MMOL/L (135-145); eGFR 33 ML/MIN
--- NOTE | 2019-06-08 06:30 | NUR ---
Patient in room PCU 3018B. I have received report from Elida RAMIRES and had the opportunity to ask questions and assume patient care. Patient laying in bed, no signs of distress, will continue to monitor.
[2019-06-08] MEDS: K and/or MAG REPLACEMENT MC SCH (08:00)
[2019-06-08] MEDS: mineral oil/petrolatum, white cream 113gm jar TP SCH (08:11)
[2019-06-08] MEDS: atorvastatin 20mg tablet PO SCH (08:12)
[2019-06-08] MEDS: lisinopril 20mg tablet PO SCH (08:12)
[2019-06-08] MEDS: aspirin 81mg tablet.DR PO SCH (08:12)
[2019-06-08] MEDS: amiodarone 200mg tablet PO SCH (08:12)
[2019-06-08] MEDS: terazosin 5mg capsule PO SCH (08:12)
[2019-06-08] MEDS: hydrALAZINE 25 MG tablet PO SCH (08:13)
[2019-06-08] MEDS: insulin Lispro (HumaLOG) vial - multi-dose SQ SCH (08:18)
[2019-06-08 11:00] VITALS: BP 151/71
--- NOTE | 2019-06-08 12:02 | NUR ---
Report called to [facility], report given to JAILYN Pelaez at receiving facility. VS stable at this time. 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
--- NOTE | 2019-06-08 12:30 | NUR ---
Per MD order by Dr. Galindo, patient is stable for discharge to post acute care. Patient to go to [facility]. Report called to facility, given to Latanya GLASER. Transfer packet sent with [employer] and patient. All belongings sent with patient. IV removed with cannula intact. Tele monitor removed. Patient discharged with [facility] personnel to [facility]. VS stable at time of discharge.
== END 2019-06-08 12:30 | DRG 175 ==
LOC: ER 11:43 → ED HOLD 13:55 → PCU 3S 15:25
PROVIDERS: ADMIT Internal Medicine; ATTEND Internal Medicine
DX: I26.09 Other pulmonary embolism with acute cor pulmonale (principal); I50.33 Acute on chronic diastolic (congestive) heart failure; I13.0 Hypertensive heart and chronic kidney disease with heart failure and stage 1 through stage 4 chronic kidney disease, or unspecified chronic kidney disease; L03.116 Cellulitis of left lower limb; L03.115 Cellulitis of right lower limb; N17.9 Acute kidney failure, unspecified; Z68.41 Body mass index [BMI] 40.0-44.9, adult; I50.813 Acute on chronic right heart failure; I48.0 Paroxysmal atrial fibrillation; D63.8 Anemia in other chronic diseases classified elsewhere; E11.22 Type 2 diabetes mellitus with diabetic chronic kidney disease; E11.65 Type 2 diabetes mellitus with hyperglycemia; E66.01 Morbid (severe) obesity due to excess calories; E78.5 Hyperlipidemia, unspecified; I25.10 Atherosclerotic heart disease of native coronary artery without angina pectoris; I50.82 Biventricular heart failure; J43.9 Emphysema, unspecified; E87.6 Hypokalemia; D64.9 Anemia, unspecified; N18.9 Chronic kidney disease, unspecified; Z95.1 Presence of aortocoronary bypass graft; Z79.899 Other long term (current) drug therapy; Z79.82 Long term (current) use of aspirin; Z95.5 Presence of coronary angioplasty implant and graft; Z79.84 Long term (current) use of oral hypoglycemic drugs
CPT/HCPCS: 36415; 71045; 80048; 80053; 82948; 83036; 83735; 83880; 84132; 84145; 84484; 85025; 87081; 93005; 96374; 96375; 97110; 97116; 97161; 97530; 99285; G0378; J0360; J0696; J1815; J1940